=== PATIENT | male | born 1960 | race Caucasian/White ===

== ENCOUNTER 2017-03-27 07:47 | Inpatient (IN) | payer SELFPAY ==
[~2017-03-27] VITALS: Ht 183 cm; Wt 89.4 kg
[2017-03-27 08:15] LABS: BASOPHIL 0.3 % (0-2); EOSINOPHIL 0.8 % (0-5); HCT 46.7 % (42.0-52.0); HGB 16.5 g/dl (13.2-18.0); LYMPHOCYTE 12.5 % (15-48); MCH 33.3 pg (25.0-31.0); MCHC 35.3 g/dL (32.0-36.0); MCV 94.3 fL (78.0-100.0); MONOCYTE 6.8 % (0-12); MPV 11.2 fL (6.0-9.5); NEUTROPHIL 79.6 % (41-80); PLT 150 K/uL (150-400); RBC 4.95 M/uL (4.70-6.00); RDW 14.9 % (11.5-14.0); WBC 15.2 K/uL (4.0-10.5)
[2017-03-27 08:40] LABS: ALBUMIN 4.2 g/dL (3.5-5.0); BILIRUBIN - TOTAL 1.1 mg/dL (0.1-1.0); GLOBULIN (CALCULATION) 4.1 g/dL (2.2-4.2); INR 1.02 (0.9-1.2); POTASSIUM 3.6 mmol/L (3.5-5.1); PTT 25.8 SECONDS (23.2-31.4); TOTAL PROTEIN 8.3 g/dL (6.4-8.3)
[2017-03-27 15:42] LABS: BASOPHIL NO PRINT 0.3 % (0-2); EOSINOPHIL NO PRINT 1.5 % (0-5); HCT 42.1 % (42.0-52.0); HGB 14.6 g/dL (13.2-18.0); LYMPHOCYTE NO PRINT 16.9 % (15-48); MCH NO PRINT 33.4 pg (25.0-31.0); MCHC NO PRINT 34.7 g/dL (32.0-36.0); MCV NO PRINT 96.3 fL (78.0-100.0); MONOCYTE NO PRINT 6.2 % (0-12); MPV NO PRINT 10.9 fL (6.0-9.5); NEUTROPHIL NO PRINT 75.1 % (41-80); RBC NO PRINT 4.37 M/uL (4.70-6.00); RDW NO PRINT 14.8 % (11.5-14.0); WBC NO PRINT 13.6 K/uL (4.0-10.5)
[2017-03-27 15:45] LABS: PLT NO PRINT 115 K/uL (150-400)
[2017-03-27 21:14] LABS: BASOPHIL NO PRINT 0.3 % (0-2); EOSINOPHIL NO PRINT 2.9 % (0-5); HCT 42.1 % (42.0-52.0); HGB 14.1 g/dL (13.2-18.0); LYMPHOCYTE NO PRINT 21.5 % (15-48); MCH NO PRINT 32.9 pg (25.0-31.0); MCHC NO PRINT 33.5 g/dL (32.0-36.0); MCV NO PRINT 98.1 fL (78.0-100.0); MONOCYTE NO PRINT 5.9 % (0-12); MPV NO PRINT 10.6 fL (6.0-9.5); NEUTROPHIL NO PRINT 69.4 % (41-80); PLT NO PRINT 128 K/uL (150-400); RBC NO PRINT 4.29 M/uL (4.70-6.00); RDW NO PRINT 14.9 % (11.5-14.0); WBC NO PRINT 11.3 K/uL (4.0-10.5)
[2017-03-28 04:06] LABS: BASOPHIL 0.3 % (0-2); EOSINOPHIL 2.7 % (0-5); HCT 41.3 % (42.0-52.0); HGB 13.8 g/dl (13.2-18.0); LYMPHOCYTE 25.4 % (15-48); MCH 32.8 pg (25.0-31.0); MCHC 33.4 g/dL (32.0-36.0); MCV 98.1 fL (78.0-100.0); MONOCYTE 6.2 % (0-12); NEUTROPHIL 65.4 % (41-80); PLT 107 K/uL (150-400); RBC 4.21 M/uL (4.70-6.00); RDW 14.8 % (11.5-14.0); WBC 8.9 K/uL (4.0-10.5)
[2017-03-28 04:27] LABS: CREATININE 0.9 mg/dL (0.7-1.2); POTASSIUM 3.9 mmol/L (3.5-5.1)
[2017-03-28 09:30] LABS: BASOPHIL NO PRINT 0.3 % (0-2); EOSINOPHIL NO PRINT 3.2 % (0-5); HCT 41.8 % (42.0-52.0); HGB 13.9 g/dL (13.2-18.0); MCH NO PRINT 32.6 pg (25.0-31.0); MCHC NO PRINT 33.3 g/dL (32.0-36.0); MCV NO PRINT 98.1 fL (78.0-100.0); MONOCYTE NO PRINT 5.8 % (0-12); NEUTROPHIL NO PRINT 68.7 % (41-80); PLT NO PRINT 98 K/uL (150-400); RBC NO PRINT 4.26 M/uL (4.70-6.00); RDW NO PRINT 14.7 % (11.5-14.0); WBC NO PRINT 7.7 K/uL (4.0-10.5)
[2017-03-28] MEDS ORDERED: VENTOLIN HFA IN18 GM INH (11:58)
[2017-03-28] MEDS ORDERED: BIAXIN500 MG PO (11:58)
[2017-03-28] MEDS ORDERED: LOPRESSOR100 MG PO (11:58)
[2017-03-28] MEDS ORDERED: AMOXICILLIN500 MG PO (11:59)
[2017-03-28] MEDS ORDERED: PROTONIX 40MG T40 MG PO (11:59)
[2017-03-28] MEDS ORDERED: PERCOCET 5/3251 TAB PO (11:59)
[2017-03-28] MEDS ORDERED: CARAFATE1 GM PO (12:00)
== END 2017-03-28 12:00 | disposition home or self-care (01) | DRG 379 ==
LOC: FER 07:47 → FTCU 10:10
PROVIDERS: Emergency Medicine; Surgery; ADMIT Internal Medicine
PROC: 0DB78ZX Excision of Stomach, Pylorus, Via Natural or Artificial Opening Endoscopic, Diagnostic (ICD-10-PCS; principal; 2017-03-27 12:30)
PROC: 0DB98ZX Excision of Duodenum, Via Natural or Artificial Opening Endoscopic, Diagnostic (ICD-10-PCS; 2017-03-27 12:30)
DX: K92.2 Gastrointestinal hemorrhage, unspecified (principal); D69.6 Thrombocytopenia, unspecified; K25.9 Gastric ulcer, unspecified as acute or chronic, without hemorrhage or perforation; I10 Essential (primary) hypertension; J44.9 Chronic obstructive pulmonary disease, unspecified; F17.210 Nicotine dependence, cigarettes, uncomplicated
CPT/HCPCS: 36415; 74022; 80048; 80053; 82941; 85014; 85018; 85025; 85610; 85730; 86850; 86900; 86901; 87339; 88305; 88312; 93005; C9113; J2270; J2405; J2704